=== PATIENT | female | born 1955 | race Caucasian/White ===

== ENCOUNTER → 2016-07-03 | Outpatient (CLI) | payer OTHER | LOC: BRMIMAGING 12:46 | DX: Z12.31 Encounter for screening mammogram for malignant neoplasm of breast (principal) | CPT/HCPCS: G0202 ==

== ENCOUNTER → 2017-04-01 | Outpatient (CLI) | payer OTHER | LOC: BRMIMAGING 11:33 | PROVIDERS: ATTEND Physician Assistant Medical | DX: E03.8 Other specified hypothyroidism (principal) ==

== ENCOUNTER → 2017-06-28 | Outpatient (CLI) | payer OTHER | LOC: CIMAGING 14:58 | PROVIDERS: ATTEND Family Medicine | DX: S92.251A Displaced fracture of navicular [scaphoid] of right foot, initial encounter for closed fracture (principal); S82.491A Other fracture of shaft of right fibula, initial encounter for closed fracture | CPT/HCPCS: 73610-PO; 73630-PO ==

== ENCOUNTER → 2018-02-10 | Outpatient (CLI) | payer OTHER | LOC: BRMIMAGING 11:16 | PROVIDERS: ATTEND Physician Assistant Medical | DX: Z12.31 Encounter for screening mammogram for malignant neoplasm of breast (principal) ==